=== PATIENT | male | born 1965 | race Caucasian/White ===

== ENCOUNTER 2017-11-10 09:15 | Outpatient (REF) | payer SELFPAY | END 2017-11-10 09:16 | LOC: OM 09:15 | PROVIDERS: Visit Provider Nurse Practitioner Family | DX: Z02.83 Encounter for blood-alcohol and blood-drug test (principal) ==

== ENCOUNTER 2018-03-22 15:47 | Emergency (ER) | payer OTHER, SELFPAY ==
[2018-03-22 15:54] VITALS: BP 136/87; PULSE 88; RESP 16; TEMP 37; O2SAT 96
--- NOTE | 2018-03-22 15:58 | DI.RAD_ITS ---
SYMPTOM/DIAGNOSIS: PAIN, S/P FALL LEFT FOREARM: There is no evidence of a fracture. The bony structures are intact. No soft tissue mass or other soft tissue abnormality is seen. SUMMARY: No evidence of a fracture or dislocation.
--- NOTE | 2018-03-22 15:59 | W.ED.GENAD ---
Discharge Plan Disposition Patient Disposition: HOME Condition: Stable Discharge Details Chief Complaint: Orthopedic Clinical Impression: Contusion of forearm, left Primary Care Provider: [facility],[place] ED Provider: Carlos Craig Home Meds and New Rx's Prescriptions: Continued levothyroxine [Synthroid] 200 mcg Tablet 200 PO DAILY RF: 0 metformin 500 mg Tablet 1,000 mg PO BID RF: 0 rabeprazole [Aciphex] 20 mg Tablet,Delayed Release (Dr/Ec) 40 mg PO BID RF: 0 ranitidine HCl 75 mg Tablet 75 mg PO DAILY RF: 0 Discharge Instructions Instructions: Contusion in Adults (ED) Additional Instructions: if pain continues next week see your primary care provider Stand Alone Forms: Work Release Medical Decision Making Patient works for [employer] and states he slipped oustide his truck and his left forearm fell and hit his left arm on the [place] [employer] the truck. Did not strike his head or have loc. Has an abrasion 10cm long without any laceration of the posterior left forearm. Has full rom of the wrist, does have mid forearm pain, intact distal sensation, no midline spine pain even on rom. Meets criteria per [place] head ct rules to not image the head and meets nexus to not image the c spine. Will xray forearm to eval for fx. Has no pain in wrist even in snuffbox so doubt wrist or scaphoid fx no fracture on my read, awaiting vrad report, if they agree no acute findings will d/c home and advise RICE and pcp f/u Differential Diagnosis fracture, sprain, contusion Imaging Data Radiologic Study: Attestation: I personally reviewed and interpreted this imaging study as follows: Imaging: X-Ray My impression: no acute findings HPI General Mode of arrival: ambulatory. Date/Time Provider Initiated Documentation: 03/22/18 15:56. Limitations to Documentation: no limitations. Information obtained by: patient. History of Present Illness 53 year old M presents to the emergency department with the chief complaint of left forearm pain, described as moderate, with intensity rated at 5. Quality is described as aching, and is localized to the left and upper extremity. Patient reports no radiation. Patient started experiencing this hour(s) (2) and it has been constant. Rest improves symptom(s), Movement worsens symptoms . Patient notes no other symptoms.. Patient did receive the following treatments prior to arrival, none Related Data Home Medications Medication Instructions Recorded Confirmed levothyroxine [Synthroid] 200 PO DAILY 03/22/18 metformin 1,000 mg PO BID 03/22/18 03/22/18 rabeprazole [Aciphex] 40 mg PO BID 03/22/18 03/22/18 ranitidine HCl 75 mg PO DAILY 03/22/18 03/22/18 Allergies Allergy/AdvReac Type Severity Reaction Status Date / Time iodine Allergy Severe hives, Unverified 03/22/18 15:56 rash, SOB, tachy NSAIDS (Non-Steroidal Allergy Severe hives, Unverified 03/22/18 15:56 Anti-Inflamma rash, SOB, tachy wheat AdvReac Intermediate Skin Rash Unverified 03/22/18 15:56 General Stated Complaint: Orthopedic DEMETRIA: 4 Review of Systems Review of Systems All systems reviewed & are unremarkable except as noted in HPI and below Constitutional Denies chills, Denies fever(s) and Denies weakness Cardiovascular Denies chest pain and Denies dyspnea Respiratory Denies dyspnea Gastrointestinal Denies abdominal pain, Denies nausea and Denies vomiting Musculoskeletal Denies joint swelling Integumentary/Breasts Denies rash Neurologic Denies weakness [facility] Social History Smoking/Tobacco Use Status: Never Exam Const General: no acute distress Orientation: alert [facility] Head: normal to inspection Ears: external ears normal General nose exam: external nose normal Mouth: moist mucous membranes Eyes General: appearance normal, both eyes and all related structures Neck Neck: normal visual inspection Resp Effort & Inspection: normal respiratory effort and able to speak in complete sentences Cardio Rate: regular rate Skin General skin exam: no rashes or lesions noted Neuro General: alert and oriented x3 Extrem General: full ROM and normal capillary refill Psych Mental Status: mental status grossly normal Course Vital Signs Temperature 37 C 03/22/18 15:54 Pulse 88 03/22/18 15:54 Respiratory Rate 16 03/22/18 15:54 Blood Pressure 136/87 03/22/18 15:54 Pulse Oximetry 96 03/22/18 15:54 Temperature 37 C 03/22/18 15:54 Temperature Source Skin 03/22/18 15:54 Pulse 88 03/22/18 15:54 Respiratory Rate 16 03/22/18 15:54 Respiratory Effort Non-Labored 03/22/18 15:54 Blood Pressure 136/87 03/22/18 15:54 Blood Pressure Position Sitting 03/22/18 15:54 Pulse Oximetry 96 03/22/18 15:54 Oxygen Delivery Method Room Air 03/22/18 15:54 Oxygen Flow Rate 0 03/22/18 15:54 Pain Level 8 03/22/18 15:54
--- NOTE | 2018-03-22 16:04 | ED.GENADUL_ITS ---
Discharge Plan Disposition Patient Disposition: HOME Condition: Stable Discharge Details Chief Complaint: Orthopedic Clinical Impression: Contusion of forearm, left Primary Care Provider: [facility],[place] ED Provider: Carlos Craig Home Meds and New Rx's Prescriptions: Continued levothyroxine [Synthroid] 200 mcg Tablet 200 PO DAILY RF: 0 metformin 500 mg Tablet 1,000 mg PO BID RF: 0 rabeprazole [Aciphex] 20 mg Tablet,Delayed Release (Dr/Ec) 40 mg PO BID RF: 0 ranitidine HCl 75 mg Tablet 75 mg PO DAILY RF: 0 Discharge Instructions Instructions: Contusion in Adults (ED) Additional Instructions: if pain continues next week see your primary care provider Stand Alone Forms: Work Release Medical Decision Making Patient works for [employer] and states he slipped oustide his truck and his left forearm fell and 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 Did not strike his head or have loc. Has an abrasion 10cm long without any laceration of the posterior left forearm. Has full rom of the wrist, does have mid forearm pain, intact distal sensation, no midline spine pain even on rom. Meets criteria per andor[place] head ct rules to not image the head and meets nexus to not image the c spine. Will xray forearm to eval for fx. Has no pain in wrist even in snuffbox so doubt wrist or scaphoid fx no fracture on my read, awaiting vrad report, if they agree no acute findings will d/c home and advise RICE and pcp f/u Differential Diagnosis fracture, sprain, contusion Imaging Data Radiologic Study: Attestation: I personally reviewed and interpreted this imaging study as follows: Imaging: X-Ray My impression: no acute findings HPI General Mode of arrival: ambulatory . Date/Time Provider Initiated Documentation: 03/22/18 15:56 . Limitations to Documentation: no limitations . Information obtained by: patient . History of Present Illness 53 year old M presents to the emergency department with the chief complaint of left forearm pain, described as moderate, with intensity rated at 5. Quality is described as aching, and is localized to the left and upper extremity. Patient reports no radiation. Patient started experiencing this hour(s) (2) and it has been constant. Rest improves symptom(s), Movement worsens symptoms . Patient notes no other symptoms.. Patient did receive the following treatments prior to arrival, none Related Data Home Medications Medication Instructions Recorded Confirmed levothyroxine [Synthroid] 200 PO DAILY 03/22/18 metformin 1,000 mg PO BID 03/22/18 03/22/18 rabeprazole [Aciphex] 40 mg PO BID 03/22/18 03/22/18 ranitidine HCl 75 mg PO DAILY 03/22/18 03/22/18 Allergies Allergy/AdvReac Type Severity Reaction Status Date / Time iodine Allergy Severe hives, Unverified 03/22/18 15:56 rash, SOB, tachy NSAIDS (Non-Steroidal Allergy Severe hives, Unverified 03/22/18 15:56 Anti-Inflamma rash, SOB, tachy wheat AdvReac Intermediate Skin Rash Unverified 03/22/18 15:56 General Stated Complaint: Orthopedic DEMETRIA: 4 Review of Systems Review of Systems All systems reviewed & are unremarkable except as noted in HPI and below Constitutional Denies chills, Denies fever(s) and Denies weakness Cardiovascular Denies chest pain and Denies dyspnea Respiratory Denies dyspnea Gastrointestinal Denies abdominal pain, Denies nausea and Denies vomiting Musculoskeletal Denies joint swelling Integumentary/Breasts Denies rash Neurologic Denies weakness [facility] Social History Smoking/Tobacco Use Status: Never Exam Const General: no acute distress Orientation: alert [facility] Head: normal to inspection Ears: external ears normal General nose exam: external nose normal Mouth: moist mucous membranes Eyes General: appearance normal, both eyes and all related structures Neck Neck: normal visual inspection Resp Effort & Inspection: normal respiratory effort and able to speak in complete sentences Cardio Rate: regular rate Skin General skin exam: no rashes or lesions noted Neuro General: alert and oriented x3 Extrem General: full ROM and normal capillary refill Psych Mental Status: mental status grossly normal Course Vital Signs Temperature 37 C 03/22/18 15:54 Pulse 88 03/22/18 15:54 Respiratory Rate 16 03/22/18 15:54 Blood Pressure 136/87 03/22/18 15:54 Pulse Oximetry 96 03/22/18 15:54 Temperature 37 C 03/22/18 15:54 Temperature Source Skin 03/22/18 15:54 Pulse 88 03/22/18 15:54 Respiratory Rate 16 03/22/18 15:54 Respiratory Effort Non-Labored 03/22/18 15:54 Blood Pressure 136/87 03/22/18 15:54 Blood Pressure Position Sitting 03/22/18 15:54 Pulse Oximetry 96 03/22/18 15:54 Oxygen Delivery Method Room Air 03/22/18 15:54 Oxygen Flow Rate 0 03/22/18 15:54 Pain Level 8 03/22/18 15:54
--- NOTE | 2018-03-22 16:33 | DI.VRAD_ITS ---
EXAM: XR Left Forearm, 2 Views EXAM DATE/TIME: 03/22/2018 3:59 PM CLINICAL HISTORY: 53 years old, male; Pain; Lower or forearm; Left; Patient HX: Pain S/P fall TECHNIQUE: XR Left forearm 2 views. COMPARISON: No relevant prior studies available. FINDINGS: Bones/joints: No fracture identified. Soft tissues: No unusual soft tissue calcifications seen. IMPRESSION: No fracture identified. If symptoms remain concerning, consider short-term followup imaging or alternative imaging modalities. Dictated and Authenticated by: Demetria Arias MD. Ordering:ELEAZAR Gonzalez MD
== END 2018-03-22 16:49 | disposition home or self-care (01) ==
PROVIDERS: Emergency Provider Emergency Medicine
DX: S50.12XA Contusion of left forearm, initial encounter (principal); W22.8XXA Striking against or struck by other objects, initial encounter
CPT/HCPCS: 99283; 73090; 99282; L3650

== ENCOUNTER 2019-08-07 12:17 | Outpatient (CLI) | payer OTHER, SELFPAY ==
[2019-08-08 11:49] LABS: COVID-19 RT-PCR UVMMC Result Negative (Negative)
== END 2019-08-07 12:37 ==
PROVIDERS: PCP Internal Medicine; Visit Provider Internal Medicine
DX: Z11.59 Encounter for screening for other viral diseases (principal)
CPT/HCPCS: U0003

== ENCOUNTER 2021-08-03 11:04 | Observation (INO) | payer OTHER, SELFPAY ==
[2021-08-03] VITALS (61 sets, daily range): BP systolic 115–149; BP diastolic 73–105; PULSE 61–93; RESP 9–36; TEMP 36.6–36.8; O2SAT 90–98
--- NOTE | 2021-08-03 11:23 | W.ED.GENAD ---
Discharge Plan Disposition Patient Disposition: [facility] INPATIENT Condition: Stable Discharge Details Chief Complaint: Abd Prob Clinical Impression: Chest pain of uncertain etiology, Diverticulosis of colon with hemorrhage Admit Date/Time: 08/03/21 16:57 Admit Provider: Dewayne Quintanilla Attending Provider: Dewayne Quintanilla Primary Care Provider: Aram Bae ED Provider: Mayte Peralta Discharge Data Discharge Date/Time-TO BE ENTERED AT DEPARTURE: 08/03/21 17:30 Medical Decision Making Patient is a pleasant 56-year-old male, accompanied by his daughter, with chief complaint of abdominal discomfort, bloody diarrhea and chest pain. Past medical history pertinent for diabetes. He reports that the diarrhea began 5 days ago. States that initially it was all nonbloody but since has become intermittently bloody both on the toilet fever as well as mixed within the stool. States that he has been having pain on the left side of his abdomen which again, comes and goes. States that around the time when he is going to have a bowel movement the pain can be quite severe and feels like my intestines are twisting. Denies any nausea or vomiting. No change in appetite. States that he has been trying to eat a more bland diet but that last night he had a fairly rich meal which included glass of alcohol. States that that seemed to increase his symptoms and he reports he has had approximately 6 bowel movements today. He denies any recent travel. No recent camping. No known sick contacts. No known bad food. Patient is not anticoagulated. Does have a history of acid reflux. In regard to the chest pain, patient reports that he has been having chest pain intermittently over the past few days. States that it can radiate along the left side of his chest. States that this too comes and goes. He states that it can be a burning or stabbing discomfort. Denies this being exertionally based, no known precipitating or improving factors. Denies any shortness of breath. Has had chest pain historically and reports that he had this evaluated with a negative work-up. Last stress test was about 5 years ago. He denies any history personally of [place]. Mom had [place] in her 60s. Past surgical history pertinent for cholecystectomy. No recent antibiotics. On exam, patient appears nontoxic. Vital signs are stable. Lungs are clear, normal cardiac exam. No pain with palpation of the chest. Abdominal exam is significant for discomfort with palpation over the epigastric region. No peritoneal findings. No bruising, distended abdomen, hepatosplenomegaly. No CVA tenderness. Patient denies any testicular pain. No lower extremity edema, calf tenderness. Intact distal pulses. No bruising to suggest easy bleeding. Rectal exam shows a nonthrombosed hemorrhoid at the 6 o'clock position. Significant rectal tenderness with exam. Rectal vault was clean, no stool or blood was identified on exam. Concern for potential ACS for the patient intermittent chest pain. However, patient does not have any exertional component to his chest discomfort. He denies any association with the abdominal pain. With the patient's history of bloody diarrhea, this could be associated with demand possibly from anemia with the bloody diarrhea. Epigastric discomfort and known severe acid reflux have been concerned that this potentially worsening. We will give p.o. Carafate. Patient is allergic to all NSAIDs, describes significant allergic reaction, will hold off on any aspirin at this time. Patient has had short bursts of chest discomfort while here. In regard to the diarrhea, use could be associated with likely infectious etiology. Patient does not have any risk identifiable risk factors for infectious etiology. The blood may be coming from known diverticulosis that was diagnosed on his last colonoscopy which was less than 5 years ago. Not tender on the left side, low likelihood for diverticulitis currently on the differential. With the significant discomfort that seems to wax and wane, I do feel that imaging is appropriate. Patient has significant reaction to iodine. He had initially reported that he has had iodinated contrast IDs historically but unable to find this at his home hospital. Instead, will use noniodinated p.o. contrast. EKG was obtained and reviewed by Dr. Carlos rodriguez. Significant for T wave inversions in 3, aVF, flattening of the 4 and V5. However, she remained compared to previous and advised that minimally changed from 2017. Patient is in normal sinus rhythm, no ST elevation. Labs reviewed. No leukocytosis. Patient is not anemic. Lactate within normal limits. No significant abnormality on CMP. Troponin within normal limits, lipase within normal limits. Urine concerning for trace lysed blood otherwise without significant abnormality. CT reviewed by radiology: FINDINGS: ABDOMEN: Lung Bases: Normal where visualized. Liver: Mild fatty infiltration..? No measurable mass. Gallbladder and biliary tract: Status post cholecystectomy.? No radiodense calculus or dilation. Pancreas: Normal density, no abnormal calcifications or inflammatory process. Spleen: Normal. Kidneys: Normal size, contour and axis. No radiodense stones or obstructive uropathy. No masses seen. Adrenal glands: No masses seen. Lymph nodes: Within normal limits. Abdominal Aorta: Abdominal portion non-dilated. Bowel:? small diverticulum of the descending duodenum.? Remainder of small bowel unremarkable.? Stomach unremarkable. PELVIS:? Bladder: Symmetric distention, no gross wall thickening. Bowel: Majority of the colon contains very little fecal material.? Fat deposition within wall of colon can be seen with prior episodes of inflammation as well as obesity..? Diverticulosis of sigmoid colon but no evidence of diverticulitis.? There is wall thickening in this region.? No obstruction . Appendix normal. Peritoneal cavity: No ascites, collection or mesenteric inflammatory response. Reproductive organs: Mildly enlarged prostate..? Bones: Spinal fusion from L4 through S1.? Hemangioma in the L3 vertebral body.? IMPRESSION: Sigmoid diverticulosis without evidence of diverticulitis. Repeat troponin remains within normal limits. ECG reviewed and found by Dr. José Manuel Najera, reported no change on ECG. Discussed findings at length with the patient and his daughter. He is now able to provide a stool sample. In particular, we discussed his chest pain at length. He is not sounding like he has had chronic chest pain that may or may not be exertionally based but that since his more acute illness, has been becoming much more frequent and with less provokation. Again, the patient's mother at a young age from [place]. Concerned for UA. Discussed admission with patient and the daugther, they are in agreement with the plan. Patient unable to have ASA. As patient does not have active CP currently despite frequent, brief episodes, will hold off on nitro at this time. Consulted with Dr. Quintanilla regarding admission for continued monitoring and management of possible unstable angina. He agrees to admission, will observe patient overnight and plan for stress test in the AM. HPI General Date/Time Provider Initiated Documentation: 08/03/21 11:05. Limitations to Documentation: no limitations. Information obtained by: patient, family (daughter) and RN notes reviewed. History of Present Illness 56 year old M presents to the emergency department with the chief complaint of abdominal pain, blood diarrhea, chest pain, described as moderate, with intensity rated at 5. Quality is described as sharp, and is localized to the chest and abdomen. Patient reports no radiation. Patient started experiencing this day(s) (5) and it has been intermittent. improves with No relieving factors improve symptom(s), Other factors that worsen symptoms (abdominal pain worse prior to bowel movement) . Patient notes chest pain (nonexertional, intermittent left sided CP); denies cough, diaphoresis, fever/chills, loss of appetite, nausea/vomiting, rash, shortness of breath and weakness. Patient did receive the following treatments prior to arrival, none Related Data Home Medications Medication Instructions Recorded Confirmed levothyroxine 200 mcg tablet 200 mcg PO DAILY 03/22/18 08/03/21 (Synthroid) alogliptin 25 mg tablet 25 mg PO DAILY 08/03/21 08/03/21 glipizide 10 mg tablet 10 mg PO DAILY 08/03/21 08/03/21 omeprazole 40 mg capsule,delayed 40 mg PO BID 08/03/21 08/03/21 release Allergies Allergy/AdvReac Type Severity Reaction Status Date / Time iodine Allergy Severe hives, Unverified 08/03/21 11:18 rash, SOB, tachy NSAIDS (Non-Steroidal Allergy Severe hives, Unverified 08/03/21 11:18 Anti-Inflamma rash, SOB, tachy wheat AdvReac Intermediate Skin Rash Unverified 08/03/21 11:18 General Stated Complaint: Abd Prob DEMETRIA: 3 Review of Systems Constitutional Constitutional: Reports as per HPI, Denies chills and Denies fever(s) Cardiovascular Cardiovascular: Reports as per HPI and Denies dyspnea Respiratory Respiratory: Reports as per HPI, Denies cough and Denies dyspnea Gastrointestinal Gastrointestinal: Reports as per HPI Genitourinary Genitourinary: Denies system reviewed and no additional complaints, except as documented (patient denies any change in urinary habits) Musculoskeletal Musculoskeletal: Reports as per HPI and Denies back pain Integumentary/Breasts Skin/Breast: Reports as per HPI and Denies rash Neurologic Neurologic: Reports as per HPI PFSH All Active Problems (Updated 08/03/21 @ 22:20 by JENNY Serrano) Chest pain of uncertain etiology (Chronic) Diverticulosis of colon with hemorrhage (Acute) GERD (gastroesophageal reflux disease) (Chronic) Hypothyroidism (acquired) (Chronic) Diabetes mellitus type 2, controlled, without complications (Chronic) Medical History (Updated 08/03/21 @ 22:20 by JENNY Serrano) History of deep venous thrombosis or pulmonary embolus associated w/ left knee surgery in remote past Surgical History (Updated 08/03/21 @ 19:52 by Dewayne Quintanilla) History of cholecystectomy History of lumbar fusion Hx of esophagogastroduodenoscopy S/P carpal tunnel release S/P cervical spinal fusion S/P colonoscopy S/P inguinal hernia repair S/P left knee arthroscopy S/P tonsillectomy S/P TURP Status post decompression of ulnar nerve at elbow Status post Dupuytren's fasciectomy Family History (Updated 08/03/21 @ 19:54 by Dewayne Quintanilla) Mother , 1st [place] in her 50's; from repeat [place] in her 60's Heart disease Diabetes Father Diabetes Social History (Updated 08/03/21 @ 19:54 by Dewayne Quintanilla) Smoking/Tobacco Use Status: Never Smoking risk assessment performed?: Yes Alcohol Intake: current Alcohol Intake frequency: holidays/special occasions only Drug use: Never Substance use type: does not use Household members: spouse and children Do you feel safe in your relationship?: Yes Exam Const General: cooperative, healthy appearing, comfortable, no acute distress and well developed Nutritional Appearance: average body habitus and well nourished Orientation: alert and awake [facility] Head: normal to inspection Mouth: moist mucous membranes Resp Effort & Inspection: normal respiratory effort, able to speak in complete sentences and no respiratory distress Auscultation: clear to auscultation bilaterally, no rales, no rhonchi and no wheezes Cardio Rate: regular rate Rhythm: regular rhythm Heart Sounds: S1 normal and S2 normal GI Inspection: normal to inspection and non-distended Palpation: soft, no hepatosplenomegaly, not firm, no guarding, no hepatosplenomegaly, no hernias, no masses, no pulsatile masses and tender in the epigastrum; Negative for with no rebound tenderness Percussion: normal to percussion Auscultation: normal bowel sounds Back/Spine/Pelvis Back: no CVA tenderness Skin General skin exam: no rashes or lesions noted Trauma: no lacerations or abrasions Neuro General: patient alert and patient awake Cognition: normal cognition Speech: speech normal Gait: normal gait Extrem General: normal to inspection, no pedal edema and no calf tenderness Psych Appearance: grossly normal and well kempt Mental Status: mental status grossly normal Speech and Movement: speech and movement normal Course Vital Signs Vital signs: Vital Signs Temperature 36.8 C 08/03/21 11:10 Pulse 87 08/03/21 11:10 Respiratory Rate 17 08/03/21 11:10 Blood Pressure 142/93 H 08/03/21 11:10 Pulse Oximetry 97 08/03/21 11:10 Temperature 36.8 C 08/03/21 11:10 Temperature Source Oral 08/03/21 11:10 Pulse 87 08/03/21 11:10 Respiratory Rate 17 08/03/21 11:10 Respiratory Effort Non-Labored 08/03/21 11:13 Blood Pressure 142/93 H 08/03/21 11:10 Blood Pressure Position Sitting 08/03/21 11:10 Pulse Oximetry 97 08/03/21 11:10 Oxygen Delivery Method Room Air 08/03/21 11:10 Oxygen Flow Rate 0 08/03/21 11:10 Pain Level 5 08/03/21 11:10 PAWSS Have you Been Recently Intoxicated or Drunk Within the Last 30 days?: No Have you Ever Experienced Previous Episodes of Alcohol Withdrawal?: No Have you ever Experienced Withdrawal Seizures?: No Have you ever Experienced Delirium Tremens(DT)s?: No Have you ever undergone Alcohol Rehabilitation Treatment (i.e, inpt ot outpatient treatment programs)?: No Have you ever Experienced Blackouts?: No Have you ever Combined Alcohol with other Downers within the last 90 days?: No Have you ever Combined Alcohol with any other Substance of Abuse during the last 90 days?: No Positive Blood Alcohol level on Presentation? [PCS.BAL]: No Evidence of Increased Autonomic Activity (i.e. HR>120, tremor, sweating, agitation, nausea)?: No Result: 0
--- NOTE | 2021-08-03 11:30 | RT.EKG_ITS ---
APPROVED REPORT Exam: Resting ECG Reason for Exam: CP Patient Location: E HR:74 bpm ECG Measurements Heart Rate 74 AXIS MN 160 P 58 QRSd 96 QRS -20 QT 352 T -5 QTc 391 Conclusion Sinus rhythm...normal P axis, V-rate 60- 99 sinus rhythm, left axis, T wave inversion III aVF, flat in V4 V5
--- NOTE | 2021-08-03 11:35 | DI.CT_ITS ---
Exam(s) CT ABDOMEN PELVIS WO EXAM: CT ABDOMEN PELVIS WO CLINICAL HISTORY: left sided pain, bloody diarrhea. TECHNIQUE: Imaging Protocol: Axial computed tomography images with coronal and sagittal reformatted images were created and reviewed. IV contrast: None. Patients states contrast allergy. Oral: yes barium oral contrast administered prior to exam./ COMPARISON: No exams were available for comparison FINDINGS: ABDOMEN: Lung Bases: Normal where visualized. Liver: Mild fatty infiltration.. No measurable mass. Gallbladder and biliary tract: Status post cholecystectomy. No radiodense calculus or dilation. Pancreas: Normal density, no abnormal calcifications or inflammatory process. Spleen: Normal. Kidneys: Normal size, contour and axis. No radiodense stones or obstructive uropathy. No masses seen. Adrenal glands: No masses seen. Lymph nodes: Within normal limits. Abdominal Aorta: Abdominal portion non-dilated. Bowel: small diverticulum of the descending duodenum. Remainder of small bowel unremarkable. Stoma ch unremarkable. PELVIS: Bladder: Symmetric distention, no gross wall thickening. Bowel: Majority of the colon contains very little fecal material. Fat deposition within wall of colo n can be seen with prior episodes of inflammation as well as obesity.. Diverticulosis of sigmoid col on but no evidence of diverticulitis. There is wall thickening in this region. No obstruction . Jess endix normal. Peritoneal cavity: No ascites, collection or mesenteric inflammatory response. Reproductive organs: Mildly enlarged prostate.. Bones: Spinal fusion from L4 through S1. Hemangioma in the L3 vertebral body. IMPRESSION: Sigmoid diverticulosis without evidence of diverticulitis. Results of this exam have been verbally communicated with emergency department provider. RADIATION DOSE DELIVERED: 918.81mGy.cm Total DLP DATA REPOSITORY: All CT scans at this facility are submitted to the National Radiology Data Registry (NRDR) Dose Index Registry (DIR) with the [employer] (A[employer]). RADIATION OPTIMIZATION: All CT scans at this facility use at least one of these dose optimization te chniques: automated exposure control; mA and/or kV adjustment per patient size (includes targeted exa ms where dose is matched to clinical indication); or iterative reconstruction.
[2021-08-03 11:55] LABS: Lactate 0.9 mmol/L (0.6-1.4)
[2021-08-03 11:58] LABS: Abs Immature Grans 0.04 10^3/uL (0.0-0.06); Absolute Basophil Count 0.03 10^3/uL (0.0-0.2); Absolute Eosinophil Count 0.12 10^3/uL (0.0-0.7); Absolute Lymphocyte Count 1.51 10^3/uL (1.2-3.4); Absolute Monocyte Count 0.59 10^3/uL (0.1-0.8); Absolute Neutrophil Count 4.49 10^3/uL (1.2-6.7); Basophils % 0.4; Eosinophils % 1.8; HCT 42.1 % (40.0-50.0); HGB 14.4 g/dL (13.5-17.5); Immature Grans % 0.6; Lymphocytes % 22.3; MCH 28.8 pg (27.0-33.0); MCHC 34.2 % (32.0-36.0); MCV 84 fL (80-95); MPV 9.2 fL (8.0-11.0); Monocytes % 8.7; Neutrophils % 66.2; Platelet Count 313 10^3/uL (130-400); RDW 12.3 % (11.8-14.1); RDW-SD 37.2 fL; WBC 6.78 10^3/uL (4.4-10.8)
[2021-08-03] MEDS: Normal Saline 1,000 ML 1000 ML IV (12:00)
[2021-08-03] MEDS: Sucralfate 1 GM TAB PO (12:00)
[2021-08-03] MEDS: MORPHine 4 MG/ML SYR IVP (12:00)
[2021-08-03 12:12] LABS: ALT 26 U/L (16-63); AST 14 U/L (15-37); Albumin 3.8 g/dL (3.4-5.0); Alkaline Phosphatase 88 U/L (46-116); Anion Gap 8.8 mmol/L (3-11); BUN 17 mg/dL (7-18); Bilirubin, Total 0.7 mg/dL (0.2-1.0); CO2 26.2 mmol/L (21.0-32.0); CREATININE 1.2 mg/dL (0.70-1.30); Calcium 8.7 mg/dL (8.5-10.1); Chloride 104 mmol/L (98-107); Glucose 154 mg/dL (74-106); Lipase 64 U/L (73-393); Magnesium 1.8 mg/dL (1.8-2.4); Potassium 3.9 mmol/L (3.5-5.1); Sodium 139 mmol/L (136-145); Total Protein 7.8 g/dL (6.4-8.2); Troponin I < 50 ng/L (<or=60)
[2021-08-03 12:59] LABS: Bilirubin Negative (Negative); Blood Trace-lysed (Negative); Clarity Clear (Clear); Glucose Negative (Negative); Ketones Negative (Negative); Leukocyte Esterase Negative (Negative); Nitrite Negative (Negative); Specific Gravity 1.015 (1.005-1.025); Urobilinogen 0.2 EU/dL (Up TO 0.2)
[2021-08-03 13:08] LABS: Epithelial Cells Rare HPF (Negative); RBC 0-2 HPF (0-2); WBC Negative HPF (0-5)
[2021-08-03 13:09] LABS: Bacteria Negative HPF (Negative); C & S Indicated? No; Casts Negative LPF (Negative); Crystals Negative HPF (Negative); Mucus Negative (Negative)
--- NOTE | 2021-08-03 14:30 | RT.EKG_ITS ---
APPROVED REPORT Exam: Resting ECG Reason for Exam: chest pain Patient Location: E HR:71 bpm ECG Measurements Heart Rate 71 AXIS MI 170 P 24 QRSd 95 QRS -20 QT 353 T -26 QTc 383 Conclusion Sinus rhythm...normal P axis, V-rate 60- 99 Nonspecific T abnormalities, diffuse leads...T <-0.10mV, ant/lat/inf \ sinus rhythm, left axis, t wave inversions III avF, V3 flattening laterally
[2021-08-03] MEDS: Barium Sulfate 2% W/V-Berry Smoothie 450 ML BTL PO ×2 (14:38→14:39)
[2021-08-03 15:12] LABS: Troponin I < 50 ng/L (<or=60)
[2021-08-03 16:52] LABS: Source Nasal/Nares
--- NOTE | 2021-08-03 17:00 | NUR.NOTE ---
Nursing Note: Stool sample sent to lab, Covid swab obtained and sent to lab.
[2021-08-03 17:32] LABS: COVID-19 PCR Negative (Negative)
[2021-08-03 17:45] LABS: C Diff PCR Negative (Negative)
--- NOTE | 2021-08-03 18:24 | HPE_ITS ---
Date of service: 08/03/21 Time of Service: 18:24 Assessment and Plan Assessment and plan (1) Diverticulosis of colon with hemorrhage: Status: Acute Assessment and plan: Patient has no fevers, leukocytosis but clinically has diarrhea w/ hematochezia and CT findings of diverticulosis w/ sigmoid bowel wall thickening but no pericolonic fluid or stranding but iv contrast was not used d/t his iodine all ergy. I am going to empirically put him on full liquid diet and put him on Augmentin. I told him that he needs to have a follow up colonoscopy since it has been a few years since he last had one and his CT demonstrated sigmoid bowel wall thickening. He prefers to be referred to the [place] for this. I told him that it does not need to be done immediately and we would need time for his acute flare up to settle down but shoulld be done in a few weeks. (2) Chest pain of uncertain etiology: Status: Chronic Assessment and plan: his symptoms do not sound to be ischemic in origin (i.e. fleeting, non- exertional component) however given his FH and his age and underlying DM, he should have ETT to rule out ischemia however, I am not convinced that this needs to occur while hospitalized. Initially his case was presented as rectal bleeding possible diverticular bleeding complicated by unstable angina. However this presentation is not unstable angina and I think that he ought to recover from h is diverticular bleeding before undergoing any stress testing. I will empirically treat him for incipient diverticulitis, check serial troponin I levels (first two were negative, will check third set) and get echo in the a.m. I will repeat his CBC in the morning to be sure that he does not get sign ificantly anemic which could worsen any CP. (3) Hypothyroidism (acquired): Status: Chronic Assessment and plan: continue his levothyroxine (4) GERD (gastroesophageal reflux disease): Status: Chronic Assessment and plan: continue his omeprazole (5) Diabetes mellitus type 2, controlled, without complications: Status: Chronic History of Present Illness History of Present Illness Chief Complaint: diarrhea, rectal bleeding Narrative: 56 yr old male who is followed in the [place] in [place], [place] since moving here 7 yrs ago presents to the ED w/ 5 days of watery diarrhea w/ some bright red rectal bleeding and crampy, sometimes sharp LLQ abdominal pains. However upon further ROS performed by the ER personnel, he admits to having intermittent left sided chest pains but has been experiencing the chest pains for 4 to 5 yrs. He had stress test through the [place] when these first began. CP is intermittent, at times fleeting lasting seconds but can last for up to 10 minutes and not associate w/ exertion nor dyspnea. CP can be sharp stabbing pains or burning at times and will usually go away on their own. He had couple episodes while in the ER but had repeated EKG'S and serial troponins that were n egative for acute injury.However his EKG's did show diffuse non-specific T wave changes across precoridal leads that did not have dynamic changes and troponin I levels were normal. With respect to his diarrhea and rectal bleeding, this has been associated w/ LLQ crampy sometimes sharp abdominal pains. He has known diverticulosis and his last c-scope has been several years ago (shortly after moving here 7 yrs ago, also done at the [facility] in [place], [place]). He denies any recent ill contacts (he lives w/ his and daughter who do not have diarrhea) and he denies any fever, rigors, vomting. The rectal bleeding will sometime be bright red blood and other times dark clots within the stool. He has known GERD but is on omeprazole [address] of the abdomen and pelvis w/out contrast was done and demonstrated sigmoid diverticulosis but no definite diverticulitis. CBC did not reveal any leukocytosis nor any anemia. Patient was admitted at the urging of the ER for unstable angina. However, after interviewing the patient he has had the same pains off an on for 4 to 5 yrs not associated w/ exertion. He does have a significant FH of CAD (mother had her 1st AR in her 50's and in her 60's from another AR). Patient will be admitted on observation status and placed on liquid diet for his diverticulosis/?incipient diverticulitis; check serial troponin (first two sets negative) and get echo and treadmill ETT in the a.m. If he has no ischemia changes then if his diarrhea is improving then he can be managed as outpatient for his diverticular disease or if he has fevers or rising WBC then he will be started on antibiotics. Review of Systems Constitutional Constitutional: Denies chills, Denies fever(s) and Denies poor appetite Eyes Eyes: Reports system reviewed and no additional complaints, except as documented ENT Ears, Nose, Mouth, and Throat: Reports system reviewed and no additional complaints, except as documented Cardiovascular Cardiovascular: Reports as per HPI Respiratory Respiratory: Reports as per HPI Gastrointestinal Gastrointestinal: Reports as per HPI Genitourinary Genitourinary: Reports system reviewed and no additional complaints, except as documented Musculoskeletal Musculoskeletal: Reports system reviewed and no additional complaints, except as documented Integumentary/Breasts Skin/Breast: Reports system reviewed and no additional complaints, except as documented Neurologic Neurologic: Reports system reviewed and no additional complaints, except as documented Endocrine Endocrine: Reports system reviewed and no additional complaints, except as documented Hematologic/Lymphatic Hematologic/Lymphatic: Reports system reviewed and no additional complaints, except as documented PFSH All Active Problems (Updated 08/03/21 @ 19:56 by Dewayne Quintanilla) Chest pain of uncertain etiology (Chronic) Diverticulosis of colon with hemorrhage (Acute) GERD (gastroesophageal reflux disease) (Chronic) Hypothyroidism (acquired) (Chronic) Diabetes mellitus type 2, controlled, without complications (Chronic) Medical History (Updated 08/03/21 @ 19:56 by Dewayne Quintanilla) History of deep venous thrombosis or pulmonary embolus associated w/ left knee surgery in remote past Surgical History (Updated 08/03/21 @ 19:52 by Dewayne Quintanilla) History of cholecystectomy History of lumbar fusion Hx of esophagogastroduodenoscopy S/P carpal tunnel release S/P cervical spinal fusion S/P colonoscopy S/P inguinal hernia repair S/P left knee arthroscopy S/P tonsillectomy S/P TURP Status post decompression of ulnar nerve at elbow Status post Dupuytren's fasciectomy Family History (Updated 08/03/21 @ 19:54 by Dewayne Quintanilla) Mother , 1st AR in her 50's; from repeat AR in her 60's Heart disease Diabetes Father Diabetes Social History (Updated 08/03/21 @ 19:54 by Dewayne Quintanilla) Smoking/Tobacco Use Status: Never Smoking risk assessment performed?: Yes Alcohol Intake: current Alcohol Intake frequency: holidays/special occasions only Drug use: Never Substance use type: does not use Household members: spouse and children Do you feel safe in your relationship?: Yes Meds Allergies and Home Medications Allergies Allergy/AdvReac Type Severity Reaction Status Date / Time iodine Allergy Severe hives, Unverified 08/03/21 11:18 rash, SOB, tachy NSAIDS (Non-Steroidal Allergy Severe hives, Unverified 08/03/21 11:18 Anti-Inflamma rash, SOB, tachy wheat AdvReac Intermediate Skin Rash Unverified 08/03/21 11:18 Home Medications Medication Instructions Recorded Confirmed Type levothyroxine 200 mcg tablet 200 mcg PO DAILY 03/22/18 08/03/21 History (Synthroid) alogliptin 25 mg tablet 25 mg PO DAILY 08/03/21 08/03/21 History glipizide 10 mg tablet 10 mg PO DAILY 08/03/21 08/03/21 History omeprazole 40 mg capsule,delayed 40 mg PO BID 08/03/21 08/03/21 History release Exam Const General: cooperative, healthy appearing and no acute distress Nutritional Appearance: average body habitus and well nourished Orientation: alert, awake and oriented x3 HENMT Head: normal to inspection, normocephalic and atraumatic Face and sinus: normal facial exam Mouth: oral mucosae normal, lip normal, tongue normal, oropharynx normal and moist mucous membranes Throat: posterior oropharynx normal and uvula midline Eyes General: appearance normal, both eyes and all related structures Visual Fatima: normal visual fatima by confrontation Alignment and Position: alignment normal Periorbital: periorbital findings normal Eyelids: eyelids normal Conjunctivae: conjunctivae normal Sclera: sclerae normal Cornea: corneas normal Pupils: PERRL EOM: EOM intact bilaterally Neck Neck: normal visual inspection, full ROM, no lymphadenopathy, trachea midline and supple Thyroid: thyroid normal Carotids: normal carotid upstroke Lymphatic: no lymphadenopathy noted Chest Chest: normal inspection of the chest and normal palpation of entire chest wall Resp Effort & Inspection: normal respiratory effort and able to speak in complete sentences Auscultation: clear to auscultation bilaterally Percussion: percussion normal Cardio Jugular venous pressure: no JVD Palpation: normal PMI Rate: regular rate Rhythm: regular rhythm Heart Sounds: S1 normal, S2 normal and normal, physiologic split S2 Pulses: normal peripheral pulses GI Inspection: normal to inspection Palpation: soft, no hepatosplenomegaly and tender in the LLQ; Negative for with no rebound tenderness Percussion: normal to percussion Auscultation: normal bowel sounds General: bladder normal to inspection and bladder normal to palpation Skin General skin exam: no rashes or lesions noted, elasticity normal and turgor normal Lesions: no lesions Rashes: no rashes Trauma: no lacerations or abrasions Hair: normal Nails: normal Neuro General: patient alert, patient awake, patient oriented x3, moves all extremities and no focal motor deficits Extrem General: normal to inspection, full ROM, capillary refill normal, no joint enlargement, no clubbing, cyanosis or edema and no calf tenderness bilaterally Results Imaging Abdomen CT scan report/results: report reviewed EKG: report reviewed and image reviewed Labs Result diagrams: 08/03/21 11:51 08/03/21 11:51 Labs: Laboratory Results - last 24 hr 08/03/21 08/03/21 08/03/21 11:51 11:51 11:51 WBC 6.78 RBC 5.00 Hgb 14.4 Hct 42.1 MCV 84 MCH 28.8 MCHC 34.2 RDW 12.3 Plt Count 313 MPV 9.2 Immature Gran % 0.6 Neutrophils % 66.2 Lymphocytes % 22.3 Monocytes % 8.7 Eosinophils % 1.8 Basophils % 0.4 Nucleated RBC % 0.0 Absolute Neutrophils 4.49 Absolute Lymphocytes 1.51 Absolute Monocytes 0.59 Absolute Eosinophils 0.12 Absolute Basophils 0.03 VBG Lactate 0.9 Sodium 139 Potassium 3.9 Chloride 104 Carbon Dioxide 26.2 Anion Gap 8.8 BUN 17 Creatinine 1.2 Estimated GFR/1.73 m2 >= 60.00 Glucose 154 H Calcium 8.7 Magnesium 1.8 Total Bilirubin 0.7 AST 14 L ALT 26 Alkaline Phosphatase 88 Troponin I < 50 Total Protein 7.8 Albumin 3.8 Lipase 64 Urine Color Urine Clarity Urine pH Ur Specific [place] Urine Protein Urine Ketones Urine Blood Urine Nitrite Urine Bilirubin Urine Urobilinogen Ur Leukocyte Esterase Urine RBC Urine WBC Ur Epithelial Cells Urine Crystals Urine Bacteria Urine Casts Urine Mucus Ur Culture Indicated? Urine Glucose Stl C.difficile Tox PCR COVID-19 Source SARS-CoV-2 (PCR) 08/03/21 08/03/21 08/03/21 12:48 14:48 16:40 WBC RBC Hgb Hct MCV MCH MCHC RDW Plt Count MPV Immature Gran % Neutrophils % Lymphocytes % Monocytes % Eosinophils % Basophils % Nucleated RBC % Absolute Neutrophils Absolute Lymphocytes Absolute Monocytes Absolute Eosinophils Absolute Basophils VBG Lactate Sodium Potassium Chloride Carbon Dioxide Anion Gap BUN Creatinine Estimated GFR/1.73 m2 Glucose Calcium Magnesium Total Bilirubin AST ALT Alkaline Phosphatase Troponin I < 50 Total Protein Albumin Lipase Urine Color Yellow Urine Clarity Clear Urine pH 6.0 Ur Specific [place] 1.015 Urine Protein Negative Urine Ketones Negative Urine Blood Trace-lysed H Urine Nitrite Negative Urine Bilirubin Negative Urine Urobilinogen 0.2 Ur Leukocyte Esterase Negative Urine RBC 0-2 Urine WBC Negative Ur Epithelial Cells Rare Urine Crystals Negative Urine Bacteria Negative Urine Casts Negative Urine Mucus Negative Ur Culture Indicated? No Urine Glucose Negative Stl C.difficile Tox PCR Negative COVID-19 Source SARS-CoV-2 (PCR) 08/03/21 16:49 WBC RBC Hgb Hct MCV MCH MCHC RDW Plt Count MPV Immature Gran % Neutrophils % Lymphocytes % Monocytes % Eosinophils % Basophils % Nucleated RBC % Absolute Neutrophils Absolute Lymphocytes Absolute Monocytes Absolute Eosinophils Absolute Basophils VBG Lactate Sodium Potassium Chloride Carbon Dioxide Anion Gap BUN Creatinine Estimated GFR/1.73 m2 Glucose Calcium Magnesium Total Bilirubin AST ALT Alkaline Phosphatase Troponin I Total Protein Albumin Lipase Urine Color Urine Clarity Urine pH Ur Specific [place] Urine Protein Urine Ketones Urine Blood Urine Nitrite Urine Bilirubin Urine Urobilinogen Ur Leukocyte Esterase Urine RBC Urine WBC Ur Epithelial Cells Urine Crystals Urine Bacteria Urine Casts Urine Mucus Ur Culture Indicated? Urine Glucose Stl C.difficile Tox PCR COVID-19 Source Nasal/Nares SARS-CoV-2 (PCR) Negative Last Vital Signs Temp 36.8 C 08/03/21 17:40 Pulse 83 08/03/21 17:40 Resp 18 08/03/21 17:40 BP 132/89 08/03/21 17:40 Pulse Ox 96 08/03/21 17:40 PAWSS Have you Been Recently Intoxicated or Drunk Within the Last 30 days?: No Have you Ever Experienced Previous Episodes of Alcohol Withdrawal?: No Have you ever Experienced Withdrawal Seizures?: No Have you ever Experienced Delirium Tremens(DT)s?: No Have you ever undergone Alcohol Rehabilitation Treatment (i.e, inpt ot outpatient treatment programs)?: No Have you ever Experienced Blackouts?: No Have you ever Combined Alcohol with other Downers within the last 90 days?: No Have you ever Combined Alcohol with any other Substance of Abuse during the last 90 days?: No Positive Blood Alcohol level on Presentation? [PCS.BAL]: No Evidence of Increased Autonomic Activity (i.e. HR>120, tremor, sweating, agitation, nausea)?: No Result: 0
[2021-08-03] MEDS: Enoxaparin 40 MG/0.4 ML SYR SC (19:11)
[2021-08-03] MEDS: Acetaminophen 325 MG TAB PO (19:18)
[2021-08-03 19:44] LABS: Troponin I < 50 ng/L (<or=60)
[2021-08-03] MEDS: Amoxicillin 875/Clav. 125 TAB PO (20:33)
--- NOTE | 2021-08-03 20:35 | NUR.NOTE ---
Nursing Note: at 1915 Pt was eating [employer] chicken and cheese bread sticks
[2021-08-03] MEDS: Insulin Aspart 300 UNITS/3 ML PEN SC (22:17)
[2021-08-04 00:15] VITALS: BP 100/55; PULSE 68; RESP 16; TEMP 36; O2SAT 95
[2021-08-04] MEDS: Acetaminophen 325 MG TAB PO (00:20)
[2021-08-04] MEDS: Omeprazole 20 MG CAPCR 40 MG PO ×2 (00:28→07:40)
[2021-08-04 03:23] VITALS: BP 119/74; PULSE 61; RESP 18; TEMP 36.4; O2SAT 95
[2021-08-04] MEDS: Levothyroxine 200 MCG TAB PO (05:57)
[2021-08-04 07:04] VITALS: PULSE 66
[2021-08-04 07:29] LABS: Calculated LDL 68 mg/dL (<100); Cholesterol 142 mg/dL (<200); HDL Cholesterol 31 mg/dL (40-60); Triglyceride 217 mg/dL (<150)
[2021-08-04 07:32] VITALS: BP 124/76; PULSE 75; RESP 18; TEMP 36.2; O2SAT 96
[2021-08-04] MEDS: Amoxicillin 875/Clav. 125 TAB PO (07:40)
[2021-08-04 07:42] LABS: Abs Immature Grans 0.01 10^3/uL (0.0-0.06); Absolute Basophil Count 0.02 10^3/uL (0.0-0.2); Absolute Eosinophil Count 0.23 10^3/uL (0.0-0.7); Absolute Lymphocyte Count 1.53 10^3/uL (1.2-3.4); Absolute Monocyte Count 0.58 10^3/uL (0.1-0.8); Absolute Neutrophil Count 2.34 10^3/uL (1.2-6.7); Basophils % 0.4; Eosinophils % 4.9; HCT 38.7 % (40.0-50.0); Immature Grans % 0.2; Lymphocytes % 32.5; MCH 29.1 pg (27.0-33.0); MCHC 33.6 % (32.0-36.0); MCV 87 fL (80-95); Monocytes % 12.3; Neutrophils % 49.7; Platelet Count 269 10^3/uL (130-400); RBC 4.47 10^6/uL (4.36-5.78); RDW 12.4 % (11.8-14.1); RDW-SD 39.1 fL; WBC 4.71 10^3/uL (4.4-10.8)
--- NOTE | 2021-08-04 08:00 | DI.US_ITS ---
APPROVED REPORT EXAM: Comprehensive 2D, Doppler, and color-flow Echocardiogram Patient Location: In-Patient Room/Bed: 227 Extension Service Agent: Karla Sena RDCS (AE) Indications: Chest pain Other Information Study Quality: Good Conclusion Normal left ventricular wall thickness and chamber size. Estimated ejection fraction is 60%. There are no segmental wall motion abnormalities Normal right ventricular size and systolic function Both atria are normal in size There is no structural or hemodynamically significant valvular disease Estimated right ventricular systolic pressure is 24 mmHg Wall motion Left Ventricle The left ventricle is normal size. The left ventricular systolic function is normal. The left ventric ular ejection fraction is within the normal range. There is normal left ventricular wall thickness. T here is normal LV segmental wall motion. There is no ventricular septal defect visualized. LVEF is 60 %. Right Ventricle The right ventricle is normal size. The right ventricular systolic function is normal. The RVSP is 24 .1mmHg. Atria The left atrium size is normal. The right atrium size is normal. The interatrial septum is intact wit h no evidence for an atrial septal defect. Aortic Valve The aortic valve is normal in structure. Aortic valve is trileaflet. There is no aortic valvular sten osis. No aortic regurgitation is present. Mitral Valve The mitral valve is normal in structure. No evidence of mitral valve stenosis. Trace mitral regurgita tion. Tricuspid Valve The tricuspid valve is normal in structure. There is no tricuspid valve stenosis. Trace tricuspid reg urgitation. Pulmonic Valve The pulmonary valve is normal in structure. There is no pulmonic valvular stenosis. Trace pulmonic re gurgitation. Great Vessels The aortic root is normal in size. The ascending aorta is normal in size. Aortic arch is normal in ca liber. IVC is normal in size and collapses >50% with inspiration. Pericardium There is no pericardial effusion. 2D Dimensions IVSD d PLAX 0.96 cm M: 0.6-1.2 LV Vol A2C d MOD 79.5 mL LVPW d PLAX 0.98 cm M: 0.6 - 1.2 LV Vol A4C d MOD 119.3 mL LVID d PLAX 5.10 cm M: 4.2 - 5.8 LA vol/ BSA A2C s A-L 22.1 mL/m2 LVDs 3.50 cm M: 2.5 - 4.0 LA vol/ BSA A4C s A-L 19.7 mL/m2 Ao Root d 3.67 cm M: 3.1 - 3.7 LA Vol/ BSA Biplane s A-L 22.1 mL/m2 RA Area A4C 13.87 cm2 LA Area A4C s MOD 14.83 cm2 RA Vol/ BSA A4C s A-L 15.1 mL/m2 LA Area A2C s MOD 16.67 cm2 Ao Asc Diam d 3.47 cm M: 2.6 - 3.4 LV EF A4C MOD 59.4 % LV EF Teichholz 57.9 % LV EF A2C MOD 61.4 % LVEF (Schaeffer's) 59.59 % M: 52 - 72 LV EF Biplane MOD 59.6 % LV Volume 71.70 mL M: 62 - 150 SV 57.96 mL LV Volume Index 33.98 mL/m2 M: 34 - 74 SV Index 27.48 mL/m2 LV Vol Biplane MOD 97.3 mL FS 30.65 % M-Mode TAPSE 1.68 cm (M/F) >1.7 LV Diastology MV E' medial 0.071 (>0.07 m/s) E/A Ratio 1.0 LV E/e MED 9.15 (<14) MV E Vmax 0.65 (0.4-1.3 m/s) MV E' lateral 0.094 (>0.1 m/s) MV A Vmax 0.65 (0.4-1.3 m/s) LV E/e LAT 6.95 (<14) MV E/A Ratio 1.00 MV E/E' medial 9.16 MV E/E' lateral 6.97 Aortic Valve LVOT Area 3.37 cm2 AoV Area Vmax 3.11 cm2 LVOT Vmax 1.21 m/s AoV Area/ BSA (Vmax) 1.47 cm2/m2 LVOT Mean Jarred. 0.73 m/s SALAS Mean Jarred. 2.93 cm2 LVOT Peak Grad 5.8 mmHg SALAS Mean Jarred. Index 1.39 cm2/m2 LVOT Mean Grad 2.6 mmHg LVOT VTI 0.208 m LVOT Diam s 2.05 cm AoV Vmax 1.31 m/s Velocity Ratio 0.92 AoV Mean Jarred. 0.84 m/s AoV Peak Grad 6.9 mmHg LVOT SV 70.08 mL AoV Mean Grad 3.3 mmHg AoV VTI 0.219 m AoV Area VTI 3.20 cm2 AoV Area/ BSA (VTI) 1.52 cm/m2 Mitral Valve MV DT 207 (160-240 msec) MV PHT 60 msec MV Area PHT 3.66 cm2 MV VTI 0.270 m MV Area VTI 2.59 (4.0-6.0 cm2) Pulmonary Valve PV Vmax 0.85 (0.5-1.5 m/s) RVOT Peak Gr. 1.20 mmHg PV Peak Grad 2.9 mmHg RVOT Mean Gr. 0.55 mmHg PV Mean Grad 1.3 mmHg RVOT VTI 0.118 m PV VTI 0.174 m RVOT Vmax 0.55 m/s Tricuspid Valve TR Peak Grad 21.1 mmHg TR Vmax 2.30 m/s RA Pressure 3.00 mmHg RVSP (TR) 24.1 mmHg
[2021-08-04 08:35] LABS: Hemoglobin A1C 7.3 % (<5.7)
[2021-08-04] MEDS: glipiZIDE 10 MG TAB PO (10:58)
[2021-08-04 11:19] VITALS: BP 126/85; PULSE 71; RESP 18; TEMP 36.4; O2SAT 96
--- NOTE | 2021-08-04 13:08 | DSE_ITS ---
Date of service: 08/04/21 Time of Service: 13:08 DS: Diagnosis Discharge Diagnosis (1) Diverticulosis of colon with hemorrhage: Status: Acute Asessment and Plan: Patient presented to the emergency department with 4 to 5 days of diarrhea and crampy left lower quadrant abdominal pain associated with hematochezia. CT scan of the abdomen pelvis was performed without contrast and demonstrated sigmoid di verticulosis without evidence of diverticulitis nevertheless bowel wall thickening was noted in the sigmoid colon. Patient had no fever or chills and had no leukocytosis and no nausea or vomiting. Because his review of systems while being evaluated emergency department revealed that he been having intermittent chest pains albeit for the last 4 to 5 years not associated with exertion concern was raised for possible angina. Patient underwent serial EKGs and serial troponin levels. Troponin I was found to be normal at less than 50 ng/L x 3 sets. Serial EKGs demonstrated normal sinus rhythm with nonspecific diffuse T wave flattening across the precordial leads. An echocardiogram was performed on the day following admission and demonstrated normal left ventricular size and function and normal right ventricular size and function and no significant valvular heart disease. LVEF of 60%. Performing a stress test was entertained however in light of his acute left lower quadrant abdominal pain and rectal bleeding it was felt to be inappropriate to perform a stress test at this time particularly since his chest pain seem to be nonischemic in origin. Physical examination actually revealed that he had reproducible left-sided costochondral tenderness that reproduces the exact same pains that he says he has been experiencing for the last 4 to 5 years. Patient was placed on Augmentin 875 mg orally twice a day and started on a low fiber diet. It is recommended he follow-up with his primary care provider to discuss having a follow-up colonoscopy to evaluate the sigmoid bowel wall th ickening. This should be done in a few weeks once his diverticulitis is cleared up. Patient was also advised to discuss with his PCP regarding follow-up stress testing as well as a follow-up cardiac event recorder. Cardiac event recorder was suggested based on the patient's subsequent recall of having intermittent palpitations and having a family history of atrial fibrillation. (2) Chest pain of uncertain etiology: Status: Chronic Asessment and Plan: Nonischemic reproducible left-sided chest wall pain. Lipid profile was checked and was found to have a normal total cholesterol 142, LDL 68, low HDL 31, elevated triglycerides of 217. Statin therapy was not initiated but left to the discretion of his PCP. However given his history of diabetes mellitus and family history of coronary artery disease it is strongly recommended that he be started on low-dose statin. (3) Hypothyroidism (acquired): Status: Chronic Asessment and Plan: No change in his levothyroxine dose. TSH was not checked during this hospitalization. (4) GERD (gastroesophageal reflux disease): Status: Chronic (5) Diabetes mellitus type 2, controlled, without complications: Status: Chronic Asessment and Plan: Patient was kept on his usual dose of omeprazole 40 mg p.o. twice daily. As part of his nonischemic chest pain work-up it is recommended that he discuss with his PCP about having a follow-up EGD and possibly down stepping his PPI use. Discharge Plan Disposition Patient Disposition: HOME Condition: Improving Discharge Details Reason For Visit: RECTAL BLEEDING, UNSTABLE ANGINA Admit Date/Time: 08/03/21 16:57 Admit Provider: Dewayne Quintanilla Attending Provider: Dewayne Quintanilla Primary Care Provider: Aram Bae Home Meds and New Rx's Prescriptions: New amoxicillin-pot clavulanate 875-125 mg tablet 1 ea PO BID AC Qty: 28 0RF Rx Instructions: take twice per day with meals x 14 days No Action levothyroxine [Synthroid] 200 mcg Tablet 200 mcg PO DAILY 0RF glipizide 10 mg Tablet 10 mg PO DAILY 0RF omeprazole 40 mg Capsule,Delayed Release(Dr/Ec) 40 mg PO BID 0RF alogliptin 25 mg Tablet 25 mg PO DAILY 0RF Discharge Instructions Instructions: Rectal Bleeding (DC), Costochondritis (DC), Diverticulitis Diet (DC) Additional Instructions: You were admitted to the hospital because of diverticular bleeding. You have been started on Augmentin (amoxicillin/clavulanic acid) 875 mg twice a day for the next week. You should follow a low fiber diet for the next week. CT scan of your abdomen and pelvis was performed without contrast and showed diverticulosis without definitive evidence for diverticulitis however there is thickening of your sigmoid colon. Because of this you should have a follow-up colonoscopy in the next month once you are acute symptoms of diverticulitis have resolved. Your chest pain symptoms which have been present off and on for the last 4 to 5 years and are not associated with exertion and were very reproducible with palpation of your ribs along the left side of your chest do not sound to be related to any ischemic heart disease. It is recommended that you follow-up with your primary care provider and discuss the need for follow-up stress testing. Your age and your diabetes and family history do increase your risk for coronary artery disease however you did tell me that you had a stress test in the last 5 years performed at the [facility] in [place]. Your primary care provider might want to repeat a treadmill stress test just to be sure that there is no occult (hidden) coronary artery disease. He also mentioned that there is a strong family history for atrial fibrillation and that at times she will notice some palpitations. It is recommend you discuss with your primary care provider obtaining an outpatient cardiac event recorder to assess whether or not you have any paroxysmal atrial fibrillation and if so how severe it is. Activity:: Activity as Tolerated Equipment/Supplies:: No Equipment Needed Diet:: fiber restricted Discharge Orders Discharge Orders: Discharge Order (Routine); Ordered 08/04/21 Ordered By: Dewayne Quintanilla DS: Summary Time Spent with Patient providing and/or coordinating discharge services: Less than 30 minutes Status at Discharge Functional status at discharge: independent ambulation Overall status at discharge: patient is progressing back to baseline Mental Status: mental status grossly normal Speech and Movement: speech and movement normal Mood: congruent mood Affect: normal affect Exam Narrative Exam Narrative: Middle-aged white male who is alert and oriented person place time circumstance in no acute discomfort. Lungs are clear to auscultation Heart regular rate and rhythm Abdomen soft nondistended there is no guarding and no rebound tenderness in his left lower quadrant tenderness is much improved this morning. He was able to allow me to palpate deeply in the left lower quadrant without eliciting significant discomfort. Psych Mental Status: mental status grossly normal Speech and Movement: speech and movement normal Mood: congruent mood Affect: normal affect DS: Data Vitals/I&O Vitals and I&O: Vital Signs Temperature 36.4 C L 08/04/21 11:19 Temperature Source Tympanic 08/04/21 11:19 Pulse 71 08/04/21 11:19 Pulse Rhythm Regular 08/04/21 07:45 Pulse 79 08/03/21 16:50 Respiratory Rate 18 08/04/21 11:19 Respiratory Effort Non-Labored 08/04/21 07:45 Respiratory Depth Normal 08/04/21 07:45 Respiratory Pattern Normal 08/04/21 07:45 Blood Pressure 126/85 08/04/21 11:19 Blood Pressure Mean 85 08/03/21 16:46 Blood Pressure Position Sitting 08/03/21 11:10 Pulse Oximetry 96 08/04/21 11:19 Oxygen Delivery Method Room Air 08/04/21 11:19 Oxygen Flow Rate 0 08/04/21 11:19 Pain Level 1 08/04/21 11:19 Comment 08/04/21 11:19 Intake & Output 08/03/21 08/04/21 08/04/21 23:59 11:59 23:59 Intake Total 1000 / 1000 850 / 850 Output Total 900 / 1450 550 / 1450 Balance 1000 / 1000 -50 / -600 -550 / -600 Weight 93 kg Intake: IV 1000 / 1000 Oral 850 / 850 Output: Urine 900 / 1450 550 / 1450 Other: Urine Color Yellow Straw Urine Appearance Clear Clear Clear Urine Odor Normal Comment patient reports voided in toilet x 1 around 0000 pT used urinal in bathroom. Stool Size Moderate Stool Characteristics Soft Liquid Brown Voiding Methods Toilet Urinal Data Completed and Pending Labs on day of discharge: Labs from last 24 hours 08/04/21 08/04/21 08/04/21 07:35 06:25 05:54 WBC 4.71 RBC 4.47 Hgb 13.0 L Hct 38.7 L MCV 87 MCH 29.1 MCHC 33.6 RDW 12.4 Plt Count 269 MPV 10.0 Immature Gran % 0.2 Neutrophils % 49.7 Lymphocytes % 32.5 Monocytes % 12.3 Eosinophils % 4.9 Basophils % 0.4 Nucleated RBC % 0.0 Absolute Neutrophils 2.34 Absolute Lymphocytes 1.53 Absolute Monocytes 0.58 Absolute Eosinophils 0.23 Absolute Basophils 0.02 Hemoglobin A1c 7.3 H Troponin I Triglycerides Total Cholesterol LDL Cholesterol, Calc HDL Cholesterol Urine RBC Urine WBC Ur Epithelial Cells Urine Crystals Urine Bacteria Urine Casts Urine Mucus Ur Culture Indicated? Stool Description Stool Campylobacter PCR Pending Stl C.difficile Tox PCR Stool Salmonella PCR Pending Stool Shigella PCR Pending Stool Ova & Parasites COVID-19 Source SARS-CoV-2 (PCR) Shiga Toxin (PCR) Pending 08/04/21 08/03/21 08/03/21 05:54 19:14 16:49 WBC RBC Hgb Hct MCV MCH MCHC RDW Plt Count MPV Immature Gran % Neutrophils % Lymphocytes % Monocytes % Eosinophils % Basophils % Nucleated RBC % Absolute Neutrophils Absolute Lymphocytes Absolute Monocytes Absolute Eosinophils Absolute Basophils Hemoglobin A1c Troponin I < 50 Triglycerides 217 H Total Cholesterol 142 LDL Cholesterol, Calc 68 HDL Cholesterol 31 L Urine RBC Urine WBC Ur Epithelial Cells Urine Crystals Urine Bacteria Urine Casts Urine Mucus Ur Culture Indicated? Stool Description Stool Campylobacter PCR Stl C.difficile Tox PCR Stool Salmonella PCR Stool Shigella PCR Stool Ova & Parasites COVID-19 Source Nasal/Nares SARS-CoV-2 (PCR) Negative Shiga Toxin (PCR) 08/03/21 08/03/21 08/03/21 16:40 16:40 14:48 WBC RBC Hgb Hct MCV MCH MCHC RDW Plt Count MPV Immature Gran % Neutrophils % Lymphocytes % Monocytes % Eosinophils % Basophils % Nucleated RBC % Absolute Neutrophils Absolute Lymphocytes Absolute Monocytes Absolute Eosinophils Absolute Basophils Hemoglobin A1c Troponin I < 50 Triglycerides Total Cholesterol LDL Cholesterol, Calc HDL Cholesterol Urine RBC Urine WBC Ur Epithelial Cells Urine Crystals Urine Bacteria Urine Casts Urine Mucus Ur Culture Indicated? Stool Description Pending Stool Campylobacter PCR Stl C.difficile Tox PCR Negative Stool Salmonella PCR Stool Shigella PCR Stool Ova & Parasites Pending COVID-19 Source SARS-CoV-2 (PCR) Shiga Toxin (PCR) 08/03/21 12:48 WBC RBC Hgb Hct MCV MCH MCHC RDW Plt Count MPV Immature Gran % Neutrophils % Lymphocytes % Monocytes % Eosinophils % Basophils % Nucleated RBC % Absolute Neutrophils Absolute Lymphocytes Absolute Monocytes Absolute Eosinophils Absolute Basophils Hemoglobin A1c Troponin I Triglycerides Total Cholesterol LDL Cholesterol, Calc HDL Cholesterol Urine RBC 0-2 Urine WBC Negative Ur Epithelial Cells Rare Urine Crystals Negative Urine Bacteria Negative Urine Casts Negative Urine Mucus Negative Ur Culture Indicated? No Stool Description Stool Campylobacter PCR Stl C.difficile Tox PCR Stool Salmonella PCR Stool Shigella PCR Stool Ova & Parasites COVID-19 Source SARS-CoV-2 (PCR) Shiga Toxin (PCR) PFSH All Active Problems (Updated 08/03/21 @ 22:20 by JENNY Serrano) Chest pain of uncertain etiology (Chronic) Diverticulosis of colon with hemorrhage (Acute) GERD (gastroesophageal reflux disease) (Chronic) Hypothyroidism (acquired) (Chronic) Diabetes mellitus type 2, controlled, without complications (Chronic) Medical History (Updated 08/03/21 @ 22:20 by JENNY Serrano) History of deep venous thrombosis or pulmonary embolus associated w/ left knee surgery in remote past Surgical History (Updated 08/03/21 @ 19:52 by Dewayne Quintanilla) History of cholecystectomy History of lumbar fusion Hx of esophagogastroduodenoscopy S/P carpal tunnel release S/P cervical spinal fusion S/P colonoscopy S/P inguinal hernia repair S/P left knee arthroscopy S/P tonsillectomy S/P TURP Status post decompression of ulnar nerve at elbow Status post Dupuytren's fasciectomy Family History (Updated 08/03/21 @ 19:54 by Dewayne Quintanilla) Mother , 1st [place] in her 50's; from repeat [place] in her 60's Heart disease Diabetes Father Diabetes Social History (Updated 08/03/21 @ 19:54 by Dewyane Quintanilla) Smoking/Tobacco Use Status: Never Smoking risk assessment performed?: Yes Alcohol Intake: current Alcohol Intake frequency: holidays/special occasions only Drug use: Never Substance use type: does not use Household members: spouse and children Do you feel safe in your relationship?: Yes
[2021-08-05 10:51] LABS: Campylobacter PCR Negative (Negative); Salmonella PCR Negative (Negative); Shiga Toxin PCR Negative (Negative); Shigella/Enteroinvasive Ecoli Negative (Negative)
== END 2021-08-04 13:45 | disposition home or self-care (01) ==
LOC: ER 13:17 → MS 17:39
PROVIDERS: Admitting Provider Internal Medicine; Emergency Provider Physician Assistant; PCP Nurse Practitioner Family; Visit Provider Internal Medicine
DX: K57.31 Diverticulosis of large intestine without perforation or abscess with bleeding (principal); R07.89 Other chest pain; E11.9 Type 2 diabetes mellitus without complications; R94.31 Abnormal electrocardiogram [ECG] [EKG]; Z82.49 Family history of ischemic heart disease and other diseases of the circulatory system; K21.9 Gastro-esophageal reflux disease without esophagitis; E03.9 Hypothyroidism, unspecified; Z86.718 Personal history of other venous thrombosis and embolism; Z79.84 Long term (current) use of oral hypoglycemic drugs
CPT/HCPCS: 36415; 36416; 80053; 80061; 82962; 83690; 87493; 87505; 87635; 93005; 93306; 96361; 96372; 96374; 99285; J1650; 74176; 81003; 81015; 83036; 83605; 83630; 83735; 84484; 85025; 87177; 93010; 99217; 99219; G0378; J2270

== ENCOUNTER 2022-06-03 10:27 | Outpatient (CLI) | payer OTHER, SELFPAY ==
--- NOTE | 2022-06-03 09:00 | DI.RAD_ITS ---
Exam(s) XR HIP RT AP LAT ONLY EXAM: XR HIP RT AP LAT ONLY CLINICAL HISTORY: eval R hip pain. TECHNIQUE: 2D digital imaging was performed of the right hip. Two images were obtained. AP pelvis a nd lateral right hip views were obtained. COMPARISON: No exams were available for comparison FINDINGS: BONES: No acute fracture is present. No bony destructive lesion is seen. JOINTS: No dislocation present. SOFT TISSUE: Normal. IMPRESSION: Unremarkable radiographs of the right hip. DATA REPOSITORY: RADIATION DOSE DELIVERED:
== END 2022-06-03 10:28 | disposition home or self-care (01) ==
LOC: DIORS 10:27
PROVIDERS: PCP Nurse Practitioner Family; Referring Provider Nurse Practitioner Family; Visit Provider Student in an Organized Health Care Education/Training Program
DX: M70.61 Trochanteric bursitis, right hip (principal); M94.261 Chondromalacia, right knee
CPT/HCPCS: 20610; 99214; 73502; J1040

== ENCOUNTER 2023-03-03 09:08 | Emergency (ER) | payer OTHER, SELFPAY ==
[2023-03-03 09:15] VITALS: BP 118/82; PULSE 82; RESP 18; TEMP 36.4; O2SAT 95
--- NOTE | 2023-03-03 09:47 | ED.GENADUL_ITS ---
Discharge Plan Disposition Patient Disposition: Home Discharge Details Clinical Impression: Muscle spasm, Chronic neck pain Primary Care Provider: Aram Bae ED Provider: Darren Baer Home Meds and New Rx's Prescriptions: New methocarbamol 1,000 mg tablet 1,000 mg PO TID 5 Days Qty: 15 0RF diazepam [Valium] 5 mg tablet 5 mg PO TID PRN (Reason: muscle spasm) Qty: 7 0RF No Action bisacodyl [Dulcolax (bisacodyl)] 5 mg tablet,delayed release (DR/EC) 5 mg PO ONCE Qty: 4 0RF Rx Instructions: Take according to provider's instructions for colonoscopy prep. polyethylene glycol 3350 17 gram/dose powder 17 g PO ONCE Qty: 238 0RF Rx Instructions: To be taken as directed by prescriber's office for colonoscopy prep. fluticasone propionate 50 mcg/actuation spray,suspension 1 spray intranasal DAILY Rx Instructions: administer into each nostril glipizide 10 mg tablet 10 mg PO BID omeprazole 20 mg capsule,delayed release(DR/EC) 20 mg PO BID semaglutide 1 mg/dose (2 mg/1.5 mL) pen injector 1 mg subcut QWEEK melatonin 10 mg capsule 10 mg PO HS PRN pregabalin 50 mg capsule 50 mg PO BID levothyroxine [Synthroid] 200 mcg Tablet 200 mcg PO DAILY alogliptin 25 mg Tablet 25 mg PO DAILY Discharge Instructions Instructions: Muscle Spasm (ED) Medical Decision Making Emergent evaluation of acute on chronic neck pain. Initial differential includes muscle spasm, no evidence of cervical radiculopathy, doubt spinal cord impingement. Patient is neurologically intact. There is no indication for emergent imaging. Patient has not taken any medication for pain control. Will provide Robaxin and Tylenol in the emergency department. Patient is allergic to NSAIDs. I will prescribe Valium for home use. He can continue Tylenol. Encouraged to follow-up with PCP if symptoms do not improve. Medical Records Medical records reviewed: Yes I reviewed the patient's medical records. HPI General Date/Time Provider Initiated Documentation: 03/03/23 09:20 . Limitations to Documentation: no limitations . Information obtained by: patient . HPI Narrative: 57-year-old gentleman with past medical history of chronic neck pain, diabetes presents for evaluation of acute worsening of his neck issues. He reports that yesterday he was carrying an oxygen tank which caused his upper back to spasm. He reports that he is hearing a lot of cracks and pops. He denies any numbness, tingling or weakness. He has not tried any medication for symptom relief. He reports that he has had MRI of his neck in the past which demonstrated bulging disks. Related Data Home Medications Medication Instructions Recorded Confirmed levothyroxine 200 mcg tablet 200 mcg PO DAILY 03/22/18 06/04/22 (Synthroid) alogliptin 25 mg tablet 25 mg PO DAILY 08/03/21 06/04/22 bisacodyl 5 mg tablet,delayed 5 mg PO ONCE #4 tabs 10/01/21 06/04/22 release (Dulcolax (bisacodyl)) polyethylene glycol 3350 17 17 g PO ONCE #238 grams 10/01/21 06/04/22 gram/dose oral powder fluticasone propionate 50 1 spray intranasal DAILY 03/31/22 06/04/22 mcg/actuation nasal spray,suspension glipizide 10 mg tablet 10 mg PO BID 01/27/23 melatonin 10 mg capsule 10 mg PO HS PRN 01/27/23 omeprazole 20 mg capsule,delayed 20 mg PO BID 01/27/23 release pregabalin 50 mg capsule 50 mg PO BID 01/27/23 semaglutide 1 mg/dose (2 mg/1.5 1 mg subcut QWEEK 01/27/23 mL) subcutaneous pen injector diazepam 5 mg tablet (Valium) 5 mg PO TID PRN muscle spasm #7 03/03/23 tabs methocarbamol 1,000 mg tablet 1,000 mg PO TID 5 days #15 tabs 03/03/23 Previous Rx's Medication Instructions Recorded bisacodyl 5 mg tablet,delayed 5 mg PO ONCE #4 tabs 10/01/21 release (Dulcolax (bisacodyl)) polyethylene glycol 3350 17 17 g PO ONCE #238 grams 10/01/21 gram/dose oral powder diazepam 5 mg tablet (Valium) 5 mg PO TID PRN muscle spasm #7 03/03/23 tabs methocarbamol 1,000 mg tablet 1,000 mg PO TID 5 days #15 tabs 03/03/23 Allergies Allergy/AdvReac Type Severity Reaction Status Date / Time iodine Allergy Severe hives, Unverified 03/03/23 09:18 rash, SOB, tachy NSAIDS (Non-Steroidal Allergy Severe hives, Unverified 03/03/23 09:18 Anti-Inflamma rash, SOB, tachy wheat AdvReac Intermediate Skin Rash Unverified 03/03/23 09:18 General Stated Complaint: Nk/Back Pain DEMETRIA: 4 PFSH All Active Problems Chronic neck pain (Acute) Muscle spasm (Acute) Hypothyroidism (acquired) (Acute) Diabetes mellitus type 2, controlled, without complications (Acute) Trochanteric bursitis, right hip (Acute) Right hip pain (Acute) Chondromalacia, right knee (Acute) Hiatal hernia (Chronic) Sleep apnea (Acute) GERD (gastroesophageal reflux disease) (Chronic) Medical History Tinnitus Hypothyroid Bursitis Intervertebral disc disorder History of deep venous thrombosis or pulmonary embolus associated w/ left knee surgery in remote past Diverticulosis of colon with hemorrhage Surgical History S/P colonoscopy Hx of esophagogastroduodenoscopy S/P left knee arthroscopy S/P tonsillectomy Status post decompression of ulnar nerve at elbow S/P inguinal hernia repair Status post Dupuytren's fasciectomy S/P carpal tunnel release S/P TURP History of cholecystectomy S/P cervical spinal fusion History of lumbar fusion Family History Mother , 1st [place] in her 50's; from repeat [place] in her 60's Heart disease Diabetes Father Diabetes Social History Smoking/Tobacco Use Status: Never Smoking risk assessment performed?: Yes Alcohol Intake: current Alcohol Intake frequency: holidays/special occasions only Drug use: Never Substance use type: does not use Household members: spouse and children Do you feel safe in your relationship?: Yes Exam Narrative Exam Narrative: Review of Systems: All systems reviewed & are unremarkable except as noted in HPI and below Well-developed, no acute distress NACT Wearing a c-collar, which was removed. No midline C-spine tenderness, step-off or deformity, there is some mild paraspinal tenderness and some mild tenderness and spasm of the trapezius PERRL, normal conjunctiva RRR Unlabored respiratory effort Nondistended abdomen Extremities w/o deformity, no cyanosis, no edema No rashes or lesions. no focal neurologic deficits, cranial nerves intact, strength and sensation in bilateral upper extremities normal Appropriate mood and affect Course Vital Signs Vital signs: Vital Signs Temperature 36.4 C L 03/03/23 09:15 Pulse 82 03/03/23 09:15 Respiratory Rate 18 03/03/23 09:15 Blood Pressure 118/82 03/03/23 09:15 Pulse Oximetry 95 03/03/23 09:15 Temperature 36.4 C L 03/03/23 09:15 Temperature Source Oral 03/03/23 09:15 Pulse 82 03/03/23 09:15 Respiratory Rate 18 03/03/23 09:15 Blood Pressure 118/82 03/03/23 09:15 Blood Pressure Position Sitting 03/03/23 09:15 Pulse Oximetry 95 03/03/23 09:15 Oxygen Delivery Method Room Air 03/03/23 09:15 Oxygen Flow Rate 0 03/03/23 09:15
[2023-03-03] MEDS: Acetaminophen 500 MG TAB 1000 MG PO (09:57)
[2023-03-03] MEDS: Methocarbamol 500 MG TAB 1000 MG PO (09:57)
== END 2023-03-03 09:58 | disposition home or self-care (01) ==
PROVIDERS: Emergency Provider Emergency Medicine; PCP Nurse Practitioner Family
DX: M54.2 Cervicalgia (principal); M62.830 Muscle spasm of back; Z98.1 Arthrodesis status; Z86.711 Personal history of pulmonary embolism; Z86.718 Personal history of other venous thrombosis and embolism; E03.9 Hypothyroidism, unspecified
CPT/HCPCS: 99283

== ENCOUNTER 2024-05-24 15:22 | Outpatient (CLI) | payer OTHER, SELFPAY ==
--- NOTE | 2024-05-24 09:30 | DI.RAD_ITS ---
Exam(s) XR HIP RT COMPLETE AP PELVIS EXAM: XR HIP RT COMPLETE AP PELVIS CLINICAL HISTORY: RIGHT HIP PAIN. TECHNIQUE: 2D digital imaging was performed of the right hip. Two images were obtained. AP pelvis a nd lateral right hip views were obtained. COMPARISON: CR XR HIP RT AP LAT ONLY from 06/03/2022 FINDINGS: BONES: No acute fracture is present. No bony destructive lesion is seen. The distal aspects of the po sterior spinal fusion elements are seen in the sacrum. JOINTS: No dislocation present. The joint spaces are well maintained. The sacroiliac joints and symp hysis pubis are unremarkable. SOFT TISSUE: There are surgical clips inferior to the pelvis which may reflect prior vasectomy. IMPRESSION: Unremarkable radiographs of the right hip. DATA REPOSITORY: RADIATION DOSE DELIVERED:
--- NOTE | 2024-05-24 09:30 | DI.RAD_ITS ---
Exam(s) XR LUMBAR SPINE COMPLETE EXAM: XR LUMBAR SPINE COMPLETE CLINICAL HISTORY: RIGHT HIP PAIN. TECHNIQUE: 2D digital imaging was performed of the lumbar spine. Five images were obtained. AP, la teral, right oblique, left oblique and L5-S1 spot views were obtained. COMPARISON: CT CT ABDOMEN PELVIS WO from 08/03/2021 FINDINGS: BONES: No fracture or destructive lesion. There are endplate osteophytes seen at L3-L4. No facet hype rtrophy identified. There again seen postsurgical changes of posterior spinal fusion from L4 through S1. There is a disc fusion at L4-L5. DISKS: There is marked disc space narrowing at L5-S1. ALIGNMENT: There is grade 1-2 spondylolisthesis of L5 on S1. No spondylolysis or spondylolisthesis. SOFT TISSUE: Normal. IMPRESSION: Postsurgical and degenerative changes in the lumbar spine as described above. DATA REPOSITORY: RADIATION DOSE DELIVERED:
== END 2024-05-24 15:23 | disposition home or self-care (01) ==
LOC: DIORS 15:22
PROVIDERS: Visit Provider Student in an Organized Health Care Education/Training Program
DX: M43.16 Spondylolisthesis, lumbar region (principal); Z98.890 Other specified postprocedural states; M25.551 Pain in right hip
CPT/HCPCS: 72110; 73502